=== PATIENT | female | born 1955 | race Caucasian/White ===

== ENCOUNTER 2019-06-02 08:45 | Emergency (ER) | payer BC ==
[~2019-06-02] VITALS: Ht 167.6 cm; Wt 87.1 kg
[~2019-06-02 08:45] MED LIST: LOVENOX60 MG/0.6 SC; OMEPRAZOLE40 MG PO; PROTONIX40 M2 PO; WARFARIN SODIUM5 MG PO; Z REMERON PO; Z.0.WARFARIN SODIUM5 PO
--- OUTSIDE RECORDS SUMMARY | 2019-06-02 08:50 | XMS REPORT ---
Author Author [facility] Address Unknown Phone Unavailable Care Team Providers Care Primary Special Educator Name Role Phone Unavailable Unavailable Problems This patient has no known problems. Allergies, Adverse Reactions, Alerts This patient has no known allergies or adverse reactions. Medications This patient has no known medications. Results Test Description Test Time Test Comments Text Results Atomic Results Result Comments SCR MAMM BILATERAL YVES CAD DIGITAL 2018-10-20 15:20:15 - SCR MAMM BILATERAL YVES CAD DIGITALBILATERAL DIGITAL SCREENING MAMMOGRAM 3D/2D WITH CAD: 10/17/2018CLINICAL: Asymptomatic. Digital breast tomosynthesis was performed in addition to routine CC and MLO views. Current mammographic images were evaluated by either a [employer] M-Vu or a [employer] ImageChecker CAD (computer aided detection system). Comparison is made to exams dated 08/24/2016 mammogram, mammogram, and 11/18/2009 mammogram - [facility]-. There are scattered fibroglandular tissues in both breasts. There are benign calcifications in both breasts. No suspicious mass, architectural distortion, malignant type calcification, or lymph node abnormality detected. Breast architecture is stable compared to prior exams.IMPRESSION: BENIGNThere is no mammographic evidence of malignancy. Resume annual screening mammography in one year. Lex Akins M.D. ss/penrad:10/20/2018 15:20:15 Annealer: Heydi Gonzalez, [facility]-FWletter sent: BIRADS 1-2 Normal Mammogram BI-RADS: 2 Benign
--- OUTSIDE RECORDS SUMMARY | 2019-06-02 08:50 | XMS REPORT | Clinical Summary ---
Author Author [facility] Address Unknown Phone Unavailable Care Team Providers Care Title I Teacher Name Role Phone Asked, No Pcp PCP Unavailable Allergies Comments Active Allergy Reactions Severity Noted Date Erythromycin Base 02/18/2019 Penicillin G 02/18/2019 Vancomycin 02/18/2019 Medications End Date Status Medication Sig Dispensed Refills Start Date 04/25/2020 Active traMADol (ULTRAM) 50 mg Take 1 tablet 60 tablet 0 tablet (50 mg total) 9 by mouth every 4 (four) hours as needed for moderate pain. Active piroxicam (FELDENE) 20 MG TAKE 1 90 capsule 0 capsule CAPSULE(20 9 MG) BY MOUTH DAILY 02/18/2019 Discontinued (Reorder) piroxicam (FELDENE) 20 MG Take 1 30 capsule 0 capsule capsule (20 9 mg total) by mouth daily. 05/22/2019 Discontinued (Reorder) piroxicam (FELDENE) 20 MG TAKE 1 90 capsule 0 capsule CAPSULE(20 9 MG) BY MOUTH DAILY Active Problems No known active problems Encounters Care Team Description Date Type Specialty Yong Loja MD 05/22/2019 Refill Sports Medicine Yong Loja MD Bilateral primary osteoarthritis of knee (Primary Dx); Chronic pain of right knee; Chronic pain of left knee 04/26/2019 Office Visit Sports Medicine Fay Cage MA 04/26/2019 Telephone Sports Medicine Yong Loja MD Bilateral primary osteoarthritis of knee (Primary Dx); Chronic pain of right knee; Chronic pain of left knee 02/18/2019 Office Visit Sports Yong Casillas MD 02/18/2019 Refill Sports Medicine after 06/01/2018 Family History Medical History Relation Name Comments No Known Problems Father No Known Problems Mother Relation Name Status Comments Father Mother Social History Date Tobacco Use Types Packs/Day Years Used Never Smoker Smokeless Tobacco: Never Used Drinks/Week oz/Week Comments Alcohol Use Never Alcohol Habits Answer Date Recorded How often do you have a drink containing alcohol? Never 02/18/2019 How many drinks containing alcohol do you have on Not asked a typical day when you are drinking? How often do you have six or more drinks on one Not asked occasion? Sex Assigned at Date Recorded Not on file Industry Job Start Date Occupation Not on file Not on file Not on file Travel End Travel History Travel Start No recent travel history available. Last Filed Vital Signs Reading Time Taken Comments Vital Sign 109/72 04/26/2019 8:28 AM CDT Blood Pressure 90 04/26/2019 8:28 AM CDT Pulse - - Temperature - - Respiratory Rate - - Oxygen Saturation - - Inhaled Oxygen Concentration - - Weight - - Height - - Body Mass Index Plan of Treatment Care Team Description Date Type Specialty Makenna Riuz MD [address] [facility] [address] [place] [id number] 06/30/2019 Office Visit Obstetrics and Gynecology Health Maintenance Due Date Last Done Comments CERVICAL CANCER SCREENING 1977 BREAST CANCER SCREENING 2006 COLONOSCOPY SCREENING 2006 SHINGLES VACCINES (#1) 2006 INFLUENZA VACCINE 04/08/2019 Procedures Comments Procedure Name Priority Date/Time Associated Diagnosis AR ARTHROCENTESIS Routine 04/26/2019 Bilateral primary ASPIR&/INJ MAJOR JT/BURSA 8:15 AM CDT osteoarthritis of knee W/O US Chronic pain of right knee Chronic pain of left knee XR KNEE 4+ VW BILATERAL Routine 02/18/2019 Knee sprain, bilateral 8:21 AM CDT after 06/01/2018 Results * Large Joint Arthrocentesis: knee, Bilateral knee (04/26/2019 8:15 AM CDT) Narrative Performed At Yong Loja MD 04/26/20199:00 AM Large Joint Arthrocentesis: knee, Bilateral knee Consent given by: patient Site marked: site marked Timeout: Immediately prior to procedure a time out was called to verify the correct patient, procedure, equipment, computer customer support specialist and site/side marked as required Supporting Documentation Indications: pain Procedure Details Preparation: Patient was prepped and draped in the usual sterile fashion Location: knee - Bilateral knee Right side: Needle size: 20 G Approach: lateral Right knee medications administered: 2 mL bupivacaine 0.25 % (2.5 mg/mL); 80 mg methylPREDNISolone acetate 80 mg/mL; 5 mL lidocaine 10 mg/mL (1 %) Patient tolerance: patient tolerated the procedure well with no immediate complications Left side: Needle size: 20 G Approach: lateral Left knee medications administered: 2 mL bupivacaine 0.25 % (2.5 mg/mL); 80 mg methylPREDNISolone acetate 80 mg/mL; 5 mL lidocaine 10 mg/mL (1 %) Patient tolerance: patient tolerated the procedure well with no immediate complications * XR Knee 4+ Vw Bilateral (02/18/2019 8:21 AM CDT) Specimen Narrative Performed At [facility] Right knee 4 views: moderate tri compartmental joint space narrowing. No obvious fxts or dislocations Left knee 4 views: moderate tri compartmental joint space narrowing. No obvious fxts or dislocations. Performing Organization Address [facility] Phone Number [facility] [address] [place] [address] after 06/01/2018 Insurance Type Payer Benefit Subscriber ID Effective Phone Address Plan / Dates Group PPO BCBS BCBS xxxxxxxxxxxx [id number] CHOICE resent PPO/[employer] PPO Advance Directives For more information, please contact: [phone] Patient Graphics Specialist Explanation Type Date Recorded Advance Directives, Living Will and Medical Power of Guest Associate
--- NOTE | 2019-06-02 10:25 | Diagnostic Imaging Report ---
EXAMINATION: CHEST 2 VIEWS INDICATION: Chest pain COMPARISON: None FINDINGS: LINES/TUBES:None LUNGS:The lungs are mildly hyperinflated. There is perihilar fullness and indistinctness of the pulmonary vasculature. No focal consolidation. Mild biapical pleural parenchymal thickening/scarring. PLEURA:No pleural effusion or pneumothorax. MEDIASTINUM:The cardiomediastinal silhouette appears normal in size and shape. Atherosclerotic calcifications of the thoracic aorta. BONES/SOFT TISSUES:No acute osseous injury. ABDOMEN:No free air under the diaphragm. IMPRESSION: Pulmonary interstitial edema. Signed by: Dwaine Manning MD on 06/02/2019 10:22 AM
[2019-06-02 13:16] LABS: BASOPHILS # (AUTO) 0.1 (0.0-0.1); BASOPHILS % 1.1 % (0.0-1.0); EOSINOPHILS # (AUTO) 0.1 (0.0-0.4); HEMATOCRIT 37.3 % (34.2-44.1); HEMOGLOBIN 12.3 g/dL (12.0-16.0); LYMPHOCYTES # (AUTO) 2.1 (1.0-3.2); LYMPHOCYTES % 40.8 % (18.0-39.1); MEAN CORPUSCULAR HEMOGLOBIN 28.8 pg (28-32); MEAN CORPUSCULAR VOLUME 87.4 fL (81-99); MONOCYTES # (AUTO) 0.6 (0.2-0.8); MONOCYTES % 10.9 % (4.4-11.3); NEUTROPHILS # (AUTO) 2.4 (2.1-6.9); PLATELET COUNT 309 x10e3/uL (140-360); RED BLOOD COUNT 4.27 x10e6/uL (3.6-5.1); RED CELL DISTRIBUTION WIDTH 17.3 % (11.7-14.4)
[2019-06-02 13:51] LABS: ALANINE AMINOTRANSFERASE 15 IU/L (0-55); ALBUMIN 3.3 g/dL (3.5-5.0); ALBUMIN/GLOBULIN RATIO 0.8 (0.8-2.0); ALKALINE PHOSPHATASE 107 IU/L (40-150); ANION GAP 13.8 mmol/L (8-16); BLOOD UREA NITROGEN 12 mg/dL (7-26); BUN/CREATININE RATIO 18 (6-25); CALCIUM 9.7 mg/dL (8.4-10.2); CARBON DIOXIDE 25 mmol/L (22-29); CHLORIDE 102 mmol/L (98-107); CREATINE KINASE 59 IU/L (29-168); CREATININE, SERUM 0.67 mg/dL (0.57-1.11); EST GLOMERULAR FILTRATION RATE > 60 ML/MIN (60-); GLUCOSE 89 mg/dL (74-118); MAGNESIUM 1.9 MG/DL (1.3-2.1); POTASSIUM 3.8 mmol/L (3.5-5.1); SODIUM 137 mmol/L (136-145)
[2019-06-02 14:03] LABS: INR 2.45; PROTHROMBIN TIME 27.3 seconds (11.9-14.5)
[2019-06-02 14:04] LABS: PARTIAL THROMBOPLASTIN TIME 37.7 seconds (23.8-35.5)
== END 2019-06-02 15:05 | disposition home or self-care (01) ==
LOC: ER 08:45
DX: R07.89 Other chest pain (principal); J84.89 Other specified interstitial pulmonary diseases; Z86.718 Personal history of other venous thrombosis and embolism; Z98.84 Bariatric surgery status
CPT/HCPCS: 36415; 71046; 80053; 82550; 82553; 83735; 83880; 84484; 85025; 85610; 85730; 99284

== ENCOUNTER → 2021-11-22 | Day surgery (SDC) | payer BC, MEDICARE ==
[2021-11-20 12:28] LABS: BASOPHILS # (AUTO) 0.1 (0.0-0.1); BASOPHILS % 1.5 % (0.0-1.0); EOSINOPHILS # (AUTO) 0.1 (0.0-0.4); EOSINOPHILS % 1.7 % (0.0-6.0); HEMATOCRIT 32.1 % (34.2-44.1); LYMPHOCYTES # (AUTO) 2.2 (1.0-3.2); LYMPHOCYTES % 45.5 % (18.0-39.1); MEAN CORPUSCULAR HEMOGLOBIN 25.8 pg (28-32); MEAN CORPUSCULAR HGB CONC 31.2 g/dL (31-35); MEAN CORPUSCULAR VOLUME 82.7 fL (81-99); MONOCYTES # (AUTO) 0.5 (0.2-0.8); MONOCYTES % 10.5 % (4.4-11.3); NEUTROPHILS # (AUTO) 1.9 (2.1-6.9); NEUTROPHILS % 40.8 % (38.7-80.0); PLATELET COUNT 345 x10e3/uL (140-360); RED BLOOD COUNT 3.88 x10e6/uL (3.6-5.1)
[2021-11-20 12:46] LABS: ALBUMIN 3.2 g/dL (3.5-5.0); ALBUMIN/GLOBULIN RATIO 0.8 (0.8-2.0); ANION GAP 9.7 mmol/L (8-16); CALCIUM 9.6 mg/dL (8.4-10.2); CREATININE, SERUM 0.74 mg/dL (0.57-1.11); POTASSIUM 3.7 mmol/L (3.5-5.1)
[~2021-11-22] MED LIST changes: +BUPIVACAINE 0.25% 30ML SDV ONE; +DEXAMETHASONE SOD PHOS INJ 4 MG/ML SDV ONE; +FENTANYL CITRATE/PF 100MCG/2 ML INJ ONE; +HYDROCODONE/APAP 7.5MG-325MG 1 EA TAB ONE; +KETOROLAC TROMETHAMINE 30 MG/ML VIAL ONE; +LIDOCAINE HCL 2% LOCAL INJ 5 ML SDV VIAL INJ ONE; +MIDAZOLAM HCL 2 MG/2 ML VIAL ONE; +POVIDONE IODINE 0.05% 0.05 % ML PO ONE; +PROPOFOL IV EMULSION 10 MG/ML 20 ML VIAL ONE; +SEVOFLURANE INHAL SOLN 250 ML PEN BTL ONE; +VITAMIN B PO; +VITAMIN C500 M3 PO; +XARELTO20 MG PO
[2021-11-22 15:45] VITALS: BP 136/78
== END | disposition home or self-care (01) ==
LOC: OR 08:31
PROVIDERS: ATTEND Surgery
DX: C50.312 Malignant neoplasm of lower-inner quadrant of left female breast (principal); Z17.0 Estrogen receptor positive status [ER+]; R06.09 Other forms of dyspnea; Z88.0 Allergy status to penicillin; Z01.810 Encounter for preprocedural cardiovascular examination; Z01.812 Encounter for preprocedural laboratory examination; Z01.818 Encounter for other preprocedural examination; Z79.02 Long term (current) use of antithrombotics/antiplatelets; Z86.73 Personal history of transient ischemic attack (TIA), and cerebral infarction without residual deficits; Z86.711 Personal history of pulmonary embolism; Z86.718 Personal history of other venous thrombosis and embolism
CPT/HCPCS: 19301; 36415; 38500; 71046; 80053; 85025; 88307; 88342; 93005; J1100; J1885; J2001; J2250; J2704; J3010; 88305; 88309

== ENCOUNTER → 2021-11-22 | Outpatient (CLI) | payer BC ==
[~2021-11-22] MED LIST changes: -BUPIVACAINE 0.25% 30ML SDV ONE; -DEXAMETHASONE SOD PHOS INJ 4 MG/ML SDV ONE; -FENTANYL CITRATE/PF 100MCG/2 ML INJ ONE; -HYDROCODONE/APAP 7.5MG-325MG 1 EA TAB ONE; -KETOROLAC TROMETHAMINE 30 MG/ML VIAL ONE; +LIDOCAINE HCL 1% LOCAL INJ 20 ML VIAL ONE; -LIDOCAINE HCL 2% LOCAL INJ 5 ML SDV VIAL INJ ONE; -MIDAZOLAM HCL 2 MG/2 ML VIAL ONE; -POVIDONE IODINE 0.05% 0.05 % ML PO ONE; -PROPOFOL IV EMULSION 10 MG/ML 20 ML VIAL ONE; -SEVOFLURANE INHAL SOLN 250 ML PEN BTL ONE
== END ==
LOC: NM 08:33
PROVIDERS: ATTEND Surgery
DX: C50.912 Malignant neoplasm of unspecified site of left female breast (principal)
CPT/HCPCS: 19281; 76098; 78195; A9551; J2001